=== PATIENT | male | born 1945 | race Caucasian/White ===

== ENCOUNTER 2017-02-28 09:20 | Day surgery (SDC) | payer MEDICARE, OTHER ==
[~2017-02-28] VITALS: Ht 195.6 cm; Wt 82.3 kg
[~2017-02-28 09:20] MED LIST: OMEPRAZOLE40 MG PO; PEPCID40 MG PO; PROSCAR5 MG PO
[2017-02-28] MEDS ORDERED: NEURONTIN600 MG PO (09:30)
[2017-02-28] MEDS ORDERED: PROSCAR5 MG PO (09:32)
[2017-02-28] MEDS ORDERED: HYDROCODONE-APA1 TAB PO (09:32)
[2017-02-28 09:43] VITALS: BP 122/68; Ht 195.6 cm; Wt 82.3 kg
[2017-02-28 10:10] LABS: HEMATOCRIT 48.6 % (42.0-54.0); HEMOGLOBIN 16.1 g/dL (13.5-17.5); MCH 30.1 pg (26.0-34.0); MCHC 33.1 g/dL (31.0-37.0); MEAN PLATELET VOLUME 10.1 fL (7.4-10.4); RBC 5.34 10x6/uL (4.20-6.10); RDW 14.2 % (11.5-14.5); WBC 8.7 10x3/uL (4.8-10.8)
[2017-02-28 10:24] LABS: APTT 39.6 SECONDS (22.8-39.4); INR 1.09 (0.85-1.17); PROTIME 13.7 SECONDS (11.6-15.0)
--- NOTE | 2017-02-28 11:32 | NUR ---
DILATION BALOON TO 52 .
--- NOTE | 2017-02-28 11:40 | NUR ---
SAVORY DILATION WITH 45.
--- NOTE | 2017-02-28 11:44 | NUR ---
SAVORY DILITATION TO 42 NOT 45.
--- NOTE | 2017-02-28 14:45 | NUR ---
1300--IV DC'D. BLADIMIR REED 1315--DISCHARGE INSTRUCTIONS GIVEN, PT VERBALIZES UNDERSTANDING. PT OFF UNIT VIA WC. BLADIMIR REED
--- NOTE | 2017-03-26 15:36 | OP ---
PATIENT NAME: TIESHA SOMERS MEDICAL RECORD: [id number] :47 LOCATION:[facility] ADMISSION DATE: SURGEON: CHARBEL ZARATE MD DATE OF OPERATION: 02/28/2017 PROCEDURE: EGD with Savary dilation, EGD with biopsy, EGD with balloon dilation. SCOPE: Olympus video gastroscope Savary dilator to 42-Citizen [place] balloon dilator to 52-[place]izen [place]. INDICATION FOR THE PROCEDURE: Dysphagia. The patient has a history of head and neck cancer, gastroesophageal reflux disease, and known esophageal stricture. INDICATION FOR TIVA: Head and neck cancer. FINDINGS: Informed consent was given. The patient was made comfortable with the above medications. After reaching an adequate level of sedation by slow IV push, the patient was placed on his left side. The endoscope was then advanced under direct visualization through the posterior pharyngeal area and advanced to the distal esophagus, some narrowing was noted in the upper esophageal sphincter as well as in the distal esophageal sphincter. The patient had a small to medium sized hiatal hernia seen both on direct and retroflex views. Also, noted was some distal esophageal inflammation. The scope was then advanced into the gastric proper and inflammation was noted to a very mild degree in the cardia, body, and fundus. At the antral area, 2 shallow ulcerations were appreciated and some erosions were also noted. Helicobacter pylori biopsy was taken at this area as well as for histopathology. The duodenal bulb had inflammation with small ulcerations along the anterior wall and biopsies were obtained. We then advanced the scope into the second part of the duodenum and again biopsies were taken of some mild inflammation. We then brought the scope back into the distal esophageal area and advanced CRE Microvasive balloon into this area, inflated it to 52-Citizen [place], held in place for 1 minute without complication. The balloon was then withdrawn. We then advanced a thin wire through the scope and removed the gastroscope. We then placed this 42-Citizen [place] Savary dilator over the wire. I removed the wire, and held the dilator in place for 1 minute. We then withdrew the dilator and then further examined the area. On withdrawal of the scope, we did biopsy the distal esophageal area where inflammation and erosions were noted. IMPRESSION: 1. Mild stricture at the upper esophageal sphincter dilated with a Savary dilator to 42-Citizen [place]. 2. Stricture at the distal esophageal area dilated to 52-Citizen [place] with a Microvasive balloon. 3. Inflammation in the distal esophageal area, biopsied. 4. Small to medium sized hiatal hernia. 5. Shallow gastric ulcers at the antral area, biopsy taken at the antrum looking for the presence of Helicobacter pylori and histopathology. 6. Erosive gastritis. 7. Mild duodenitis in the second part of the duodenum, biopsied. 8. Duodenal bulbar ulcers without visible vessels, not actively bleeding within the duodenal bulb along the anterior wall, biopsied. OPERATIVE REPORT [id number] TIESHA SOMERS PLAN: 1. Omeprazole 20 mg p.o. q.a.m. and continue, if the patient has difficulty swallowing this small capsule, he can open the capsule and mix the contents in applesauce. 2. Famotidine 40 mg p.o. at bedtime. 3. No anti-inflammatory drugs if possible. 4. Reflux precautions. Of note, the patient by my records has had not a colonoscopy since 2009. Mr. Somers prefers to have Dr. Mendez do his colonoscopy and I would suggest if he has not had one since 2009, this would be indicated. TRANSINT:[id number] Voice Confirmation ID: [id number] DOCUMENT ID: [id number] CHARBEL ZARATE MD at 1536 CC: ABISAI SHIELDS MD, MICHELE GRISSOM MD and TIESHA MENDEZ [id number] DICTATION DATE: 02/28/17 1156 TUBE FILLER: 02/28/17 1622 [facility] 02/28/17 [place] [id number] [place] [id number]
== END 2017-02-28 13:15 | disposition home or self-care (01) ==
LOC: D.OPS 09:20
PROVIDERS: Anesthesiology
DX: K22.2 Esophageal obstruction (principal); K44.9 Diaphragmatic hernia without obstruction or gangrene; K25.9 Gastric ulcer, unspecified as acute or chronic, without hemorrhage or perforation; K29.00 Acute gastritis without bleeding; K29.50 Unspecified chronic gastritis without bleeding; K29.80 Duodenitis without bleeding; K26.9 Duodenal ulcer, unspecified as acute or chronic, without hemorrhage or perforation; K21.9 Gastro-esophageal reflux disease without esophagitis; Z85.89 Personal history of malignant neoplasm of other organs and systems; Z01.812 Encounter for preprocedural laboratory examination

== ENCOUNTER 2017-10-23 13:47 | Day surgery (SDC) | payer MEDICARE, OTHER ==
[~2017-10-23] VITALS: Ht 195.6 cm; Wt 68.9 kg
--- NOTE | ~2017-10-23 | OP ---
PATIENT NAME: TIESHA SOMERS MEDICAL RECORD: [id number] :47 [facility] AD[facility] DATE: SURGEON: CARON DAVISON MD DATE OF OPERATION: 10/23/2017 PROCEDURE: EGD with biopsy, EGD with balloon dilatation. LEVERS LACE MACHINE OPERATOR: Caron Davison MD SCOPE: Olympus video gastroscope and a CRE Microvasive balloon from 45-57 [place]. MEDICATIONS: Per TIVA anesthesia. 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 He received 200 mg of propofol for this procedure, O2 4 liters. INDICATION FOR THE PROCEDURE: Dysphagia with recurrent distal esophageal stricture, previously dilated in the past. The patient in the past has also had an upper esophageal stricture which was dilated with Savary dilatation. Additionally, the patient has a history of short segment Rodriguez's esophagus, which we will also address today. FINDINGS: Informed consent was given. The patient was made comfortable with the above medications. After reaching an adequate level of sedation by slow IV push, Mr. Somers was placed on his left side. The endoscope was then advanced under direct visualization through the posterior pharyngeal area and advanced to the distal esophagus. At this area, a stricture was appreciated and a CRE Microvasive balloon was placed in this same area and slowly inflated with water to 57-[place], held in place for 1 minute without complication. The balloon was then deflated. Of note, the patient did not have any upper esophageal stricture at this time and photodocumentation was obtained of the lower esophageal sphincter, which was open. The patient did have some slight delay of peristalsis through the esophagus, which also had some mild edema throughout. At the distal esophageal area, an area of short segment Rodriguez's esophagus was appreciated and biopsies were obtained. Also noted was a small hiatal hernia seen both on direct and retroflex views. With advancement of the scope into the stomach, normal mucosa was seen in the cardia, fundus and body of the stomach. A KASIA histopathology biopsy, however, was taken at the antral area. The duodenal bulb to the second portion had minimal inflammation. No biopsies were felt necessary at this time. The scope was then withdrawn. IMPRESSION: 1. Distal esophageal stricture dilated to 57-[place] without complication. 2. Slightly edematous esophagus with some decreased peristalsis throughout, but functional peristalsis was present. 3. Very small short segment Rodriguez esophagus biopsied. 4. Small hiatal hernia. 5. Mild gastritis, biopsy taken at the antral area. Cardia, body and fundus were normal. 6. Mild duodenitis. No biopsy obtained. OPERATIVE REPORT [id number] TIESHA SOMERS PLAN: 1. Famotidine 20 mg p.o. b.i.d. 2. Caution with antiinflammatory drugs. 3. Return to clinic on a p.r.n. basis. TRANSINT:[id number] Voice Confirmation ID: [id number] DOCUMENT ID: [id number] CARON DAVISON MD at 1319 CC: ABISAI SHIELDS MD, MICHELE GRISSOM MD and TIESHA BOATENG [id number] DICTATION DATE: 10/23/17 1611 CAMPAIGN MANAGEMENT SPECIALIST: 10/23/17 1718 [facility] 10/23/17 [facility] [address] [place] [address]
[~2017-10-23 13:47] MED LIST changes: +HYDROCODONE-APA1 TAB PO; +NEURONTIN600 MG PO
[2017-10-23] MEDS ORDERED: TIROSINT50 MCG PO (14:18)
[2017-10-23 14:26] VITALS: BP 106/56; Ht 195.6 cm; Wt 68.9 kg
[2017-10-23 15:44] LABS: HEMATOCRIT 39.4 % (42.0-54.0); HEMOGLOBIN 13.2 g/dL (13.5-17.5); MCH 30.6 pg (26.0-34.0); MCHC 33.5 g/dL (31.0-37.0); MCV 91.2 fL (80.0-100.0); MEAN PLATELET VOLUME 9.4 fL (7.4-10.4); RBC 4.32 10x6/uL (4.20-6.10); RDW 13.4 % (11.5-14.5); WBC 3.9 10x3/uL (4.8-10.8)
== END 2017-10-23 17:15 | disposition home or self-care (01) ==
LOC: D.OPS 13:47
PROVIDERS: Anesthesiology
DX: K22.2 Esophageal obstruction (principal); K29.70 Gastritis, unspecified, without bleeding; K21.9 Gastro-esophageal reflux disease without esophagitis